=== PATIENT | male | born 1995 | race Caucasian/White ===

== ENCOUNTER 2018-08-07 05:14 | Emergency (ER) | payer OTHER ==
[~2018-08-07] VITALS: Ht 177.8 cm; Wt 72.6 kg
[~2018-08-07 05:14] MED LIST: BUPR150T5 PO
[2018-08-07] MEDS ORDERED: predniSONE 50 MG TABLET PO ONE (06:00)
[2018-08-07] MEDS ORDERED: predniSONE 50 MG TABLET ONE (06:03)
--- NOTE | 2018-08-07 06:06 | NUR ---
Patient discharged to home in stable conditon. Written and verbal after care instructions given. Patient verbalizes understanding of instructions.
== END 2018-08-07 06:08 | disposition home or self-care (01) ==
LOC: ER 05:18
DX: J18.9 Pneumonia, unspecified organism (principal); Z79.899 Other long term (current) drug therapy
CPT/HCPCS: 99283; J7512; A4663